=== PATIENT | male | born 1975 | race Caucasian/White ===

== ENCOUNTER 2020-01-11 18:55 | Emergency (ER) | payer OTHER, SELFPAY ==
[2020-01-11 18:59] VITALS: BP 144/90; PULSE 74; RESP 16; TEMP 36.5; O2SAT 97
--- NOTE | 2020-01-11 19:09 | ED.DENTAL ---
HPI - Dental/Oral General Chief complaint: Dental/Oral Stated complaint: tooth pain Time Seen by Provider: 01/11/20 19:05 Source: patient Mode of arrival: ambulatory Limitations: no limitations History of Present Illness HPI Narrative: Neo Covington is a 44 yo male with a PMH of alcoholism, anxiety, depression, comes to express care for dental pain , top, tooth #5, it is broken and pain and began to swell. Pain is 8 out of 10, Patient has a history of alcoholism is being treated with naltrexone; he is requesting an antibiotic and some nonnarcotic pain medication. He currently does not have health insurance but is returning to work and so has an appointment with either dental school or will try to get into a dentist Related Data Home Medications Medication Instructions Recorded Confirmed trazodone 100 mg PO HS 01/02/19 01/11/20 buspirone 15 mg PO BID 01/11/20 01/11/20 naltrexone 50 mg PO DAILY 01/11/20 01/11/20 Allergies Allergy/AdvReac Type Severity Reaction Status Date / Time No Known Allergies Allergy Verified 01/11/20 19:10 Review of Systems Review of Systems: Narrative: CONSTITUTIONAL: Denies fever, chills, sweats. EYES: Denies visual changes, redness, discharge. ENT: Denies rhinorrhea, congestion, sore throat, otalgia. Tooth #5 pain and swelling, fractured tooth CARDIOVASCULAR: Denies chest pain, palpitations, edema. RESPIRATORY: Denies dyspnea, wheezing, cough GASTROINTESTINAL: Denies abdominal pain, nausea, vomiting, diarrhea. GENITOURINARY: Denies dysuria, hematuria, abnormal discharge SKIN: Denies rash or itching. NEUROLOGIC: Denies numbness, or focal weakness. PSYCHIATRIC: Denies anxiety or depression. [facility]LY [facility] Past Medical History Medical History Alcohol abuse Family History Family History Other Depression Diabetes mellitus Social History Social History (Updated 01/11/20 @ 19:19 by Mounika Arnett CNP) Smoking packs per day: 0.5 Smoking cigarettes per day: 10.0 Smoking status: Current every day smoker Tobacco type: cigarettes Alcohol intake: former Comments At time of signature, I agree with nursing past medical, surgical, social and family history. There is no relevant family history pertinent to the presenting complaint. See note course about blood pressure Exam Narrative: Exam Narrative: GENERAL: This is a well-nourished, well-developed patient, in moderate distress. HEAD: normocephalic, atraumatic. EYES: Sclera clear/white. Vision is grossly intact. EARS: External ears normal, Hearing grossly intact. NOSE: External nose normal without nasal discharge, nares without redness, no rhinorrhea. THROAT: Mucous membranes moist, upper R incisor tooth pain - tooth fractured and broken off- poor dentition NECK: Neck supple, non-tender CARDIOVASCULAR: Regular rate and rhythm without murmurs, gallops, or rubs. RESPIRATORY: Clear to auscultation. Breath sounds equal bilaterally. No wheezes, rales, or rhonchi. GASTROINTESTINAL: Abdomen soft, non-tender, SKIN: warm, intact with no suspicious lesions or rash, good texture and turgor. NEURO: awake, alert, and oriented to person, place and time. There were no obvious focal neurologic abnormalities. Steady gait EXTREMITIES: Normal range of motion. BACK: Nontender without deformity Course Course Emergency Course: Patient came to our clinic with tooth pain and fractured front incisor on right Started on Toradol and penicillin given list of dentists and also medical doctor so that patient can follow-up for elevated blood pressure. Patient given directions to go by [facility] a couple times in the next week and check his blood pressure to see if it has remained elevated Vital Signs Vital signs: Vital Signs Temperature 97.7 F 01/11/20 18:59 Pulse Rate 74 01/11/20 18:59 Respiratory Rate 16 01/11/20 18:59 Blood Pressure 144/90 H 01/11/20 18:59 Pulse Oximetry 97
[2020-01-11 19:12] VITALS: BP 144/90; PULSE 74; RESP 16; TEMP 36.5; O2SAT 97
== END 2020-01-11 19:32 | disposition home or self-care (01) ==
PROVIDERS: Emergency Provider Nurse Practitioner
DX: K04.7 Periapical abscess without sinus (principal); F17.200 Nicotine dependence, unspecified, uncomplicated; F41.9 Anxiety disorder, unspecified; F32.9 Major depressive disorder, single episode, unspecified
CPT/HCPCS: 99213; G0463

== ENCOUNTER 2021-02-11 11:51 | Emergency (ER) | payer OTHER, SELFPAY ==
[2021-02-11 12:05] VITALS: BP 124/74; PULSE 84; RESP 16; TEMP 36.5; O2SAT 98
--- NOTE | 2021-02-11 12:44 | ED.URI ---
HPI - URI/Sore Throat General Chief Complaint: Upper Respiratory Infection Stated Complaint: Sore Throat Time Seen by Provider: 02/11/21 12:36 Source: patient and RN notes reviewed Mode of arrival: ambulatory Limitations: no limitations History of Present Illness HPI Narrative: Patient presents today complaint of 3-day history of sore throat with left ear pain that started this morning. Denies any additional symptoms to include fever, cough, congestion or rhinorrhea. Currently rates his pain 6/10 and has been taking ibuprofen and NyQuil with mild relief. He has been vaccinated against COVID-19. MD elicited complaint: sore throat Related Data Home Medications Medication Instructions Recorded Confirmed trazodone 100 mg PO HS 01/02/19 02/11/21 buspirone 15 mg PO BID 01/11/20 02/11/21 Allergies Allergy/AdvReac Type Severity Reaction Status Date / Time No Known Allergies Allergy Verified 01/11/20 19:10 Review of Systems Review of Systems: CONSTITUTIONAL: Denies body aches, fever, chills, or sweats. EYES: Denies visual changes, redness, or discharge. ENT: Denies rhinorrhea, congestion. + Sore throat, left ear pain CARDIOVASCULAR: Denies chest pain, palpitations, or edema. RESPIRATORY: Denies cough or dyspnea. GASTROINTESTINAL: Denies abdominal pain, nausea, vomiting, or diarrhea. GENITOURINARY: Denies dysuria or hematuria. SKIN: Denies rash, itching, or wounds. MUSCULOSKELETAL: Denies back pain, joint pain, or myalgia. NEUROLOGIC: Denies headache, numbness, tingling, or weakness. PSYCH: Denies depression or anxiety. FORMERLY [facility] Past Medical History Medical History Alcohol abuse Family History Family History Other Depression Diabetes mellitus Social History Social History Smoking packs per day: 0.5 Smoking cigarettes per day: 10.0 Smoking status: Current every day smoker Tobacco type: cigarettes Alcohol intake: former Comments At time of signature, I have reviewed and agree with nursing past medical, surgical, social and family history unless otherwise noted. Please see nursing chart for further information. There is no relevant family history pertinent to the presenting complaint Exam Narrative: GENERAL: Mildly ill-appearing, well-nourished, and in no acute distress. HEAD: Normocephalic, atraumatic. EYES: EOMI. No redness or drainage. Conjunctivae normal. ENT: Mucous membranes pink and moist. Nares clear. No rhinorrhea. TMs normal bilaterally. Throat moderately edematous and erythematous with white exudate bilaterally. Tonsils 3+. Uvula midline. NECK: Normal AROM. Supple. Bilateral anterior cervical chain lymphadenopathy. CHEST: No respiratory distress. Clear to auscultation. HEART: Regular rate and rhythm. No murmur appreciated. Normal peripheral pulses. EXTREMITIES: Normal range of motion. No edema. SKIN: Warm, dry, no rash. Capillary refill normal. Normal skin turgor. NEURO: No focal deficits. Alert and oriented x3. Gait steady. PSYCH: Normal affect. No signs of depression or anxiety. Course Vital Signs Vital signs: Vital Signs Temperature 97.7 F 02/11/21 12:05 Pulse Rate 84 02/11/21 12:05 Respiratory Rate 16 02/11/21 12:05 Blood Pressure 124/74 02/11/21 12:05 Pulse Oximetry 98 02/11/21 12:05 Temperature 97.7 F 02/11/21 12:05 Pulse Rate 84 02/11/21 12:05 Respiratory Rate 16 02/11/21 12:05 Blood Pressure 124/74 02/11/21 12:05 Pulse Oximetry 98 02/11/21 12:05 Reviewed. Pt has been instructed to follow up with his PCP regarding his elevated blood pressure today. MDM - URI/Sore Throat Differential Diagnosis Differential diagnosis: Likely upper respiratory infection, otitis media, pharyngitis and other (Strep throat) Lab Data Attestation: I reviewed the patient's lab results. Labs: Strep Screen P
== END 2021-02-11 12:51 | disposition home or self-care (01) ==
PROVIDERS: Emergency Provider Nurse Practitioner
DX: J02.9 Acute pharyngitis, unspecified (principal); F17.210 Nicotine dependence, cigarettes, uncomplicated
CPT/HCPCS: 87081; 87880; 99213; G0463

== ENCOUNTER 2022-02-01 15:05 | Emergency (ER) | payer OTHER, SELFPAY ==
[2022-02-01 15:11] VITALS: BP 122/77; PULSE 84; RESP 18; TEMP 36.7; O2SAT 97
--- NOTE | 2022-02-01 16:27 | ED.DENTAL ---
HPI - Dental/Oral General Chief complaint: Dental/Oral Stated complaint: Toothache Time Seen by Provider: 02/01/22 16:20 Source: patient, RN notes reviewed and old records reviewed Mode of arrival: ambulatory Limitations: no limitations History of Present Illness HPI Narrative: 46-year-old male who presents to [facility] with complaints of pain, swelling to gum surrounding left upper tooth for the past 3 days. patient reports that his tooth broke off about 3 weeks ago and he is trying to get in to either dental clinic in [place] or the [facility] dental clinic in [facility] since they will accept the medical card. Patient reports that he has been taking Tylenol and Ibuprofen for his pain. Patient has multiple missing teeth and dental caries MD Complaint: tooth pain Location: Tooth # (11) Onset (ago): day(s) (3) Severity scale (1-10): 8 Treatment prior to arrival: oral analgesic Related Data Allergies Allergy/AdvReac Type Severity Reaction Status Date / Time No Known Allergies Allergy Verified 02/01/22 15:30 Review of Systems Review of Systems: CONSTITUTIONAL: Denies fever, chills, or sweats. ENT: Denies rhinorrhea, congestion, sore throat, or otalgia. Reports dental pain to #11 tooth with swelling and redness to gum around tooth CARDIOVASCULAR: Denies chest pain, palpitations, or edema. RESPIRATORY: Denies cough or dyspnea. SKIN: Denies rash or itching. MUSCULOSKELETAL: Denies myalgia. NEUROLOGIC: Denies headache All systems reviewed & are unremarkable except as noted in HPI and below PMFSH Past Medical History Medical History (Updated 02/10/22 @ 21:56 by Mariel Cannon NP) Alcohol abuse Anxiety Asthma Surgical History Surgical History (Updated 02/10/22 @ 21:55 by Mariel Cannon NP) H/O inguinal hernia repair History of intestinal surgery small bowel 8 inches removed Family History Family History Other Depression Diabetes mellitus Social History Social History (Updated 02/10/22 @ 21:54 by Mariel Cannon NP) Smoking packs per day: 0.5 Smoking cigarettes per day: 10.0 Smoking status: Former smoker Tobacco type: cigarettes Alcohol intake: former Comments At time of signature, agree with nursing past medical, surgical, social and family history. There is no relevant family history pertinent to the presenting complaint Exam Narrative: GENERAL: Well-appearing, well-nourished, and in no acute distress. HEAD: Normocephalic, atraumatic. EYES: PERRLA and EOMI. ENT: Nares clear, no rhinorrhea or epistaxis. Mucous membranes moist. Missing teeth, broken teeth, caries,red swollen gum around #11 tooth which is broken, no Jayson angina noted or facial swelling NECK: Supple.no lymphadenopathy CHEST: Clear to auscultation. No respiratory distress.SAO2 97% on room air HEART: Regular rate and rhythm. No murmur heard. Normal peripheral pulses. SKIN: Warm, dry, no rash. NEURO: No focal deficits. Alert and oriented x3. Course Course Emergency Course: Patient is aware of diagnosis, understands and agrees to treatment plan. Anticipatory guidance given. Patient agrees to follow-up as directed and is aware of reasons to seek care at the emergency department. Portions of this record may have been created with voice recognition software Level of Care: Express Care Visit Vital Signs Vital signs: Vital Signs Temperature 36.7 C 02/01/22 15:11 Pulse Rate 84 02/01/22 15:11 Respiratory Rate 18 02/01/22 15:11 Blood Pressure 122/77 02/01/22 15:11 Pulse Oximetry 97 02/01/22 15:11 Oxygen Delivery Room Air 02/01/22 15:11 Temperature 36.7 C 02/01/22 15:11 Pulse Rate 84 02/01/22 15:11 Respiratory Rate 18 02/01/22 15:11 Blood Pressure 122/77 02/01/22 15:11 Pulse Oximetry 97 02/01/22 15:11 Oxygen Delivery Room Air 02/01/22 15:11 Reviewed MDM - Dental/Oral MDM Narrative Medical decision making narr
== END 2022-02-01 16:42 | disposition home or self-care (01) ==
PROVIDERS: Emergency Provider Registered Nurse
DX: K04.7 Periapical abscess without sinus (principal); K08.89 Other specified disorders of teeth and supporting structures; F17.210 Nicotine dependence, cigarettes, uncomplicated
CPT/HCPCS: 99213; G0463

== ENCOUNTER 2022-06-15 17:55 | Emergency (ER) | payer OTHER, SELFPAY ==
[2022-06-15 18:01] VITALS: BP 154/97; PULSE 69; RESP 18; TEMP 36.6; O2SAT 97
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
== END 2022-06-15 18:36 | disposition home or self-care (01) ==
PROVIDERS: Emergency Provider Nurse Practitioner Family
DX: K04.7 Periapical abscess without sinus (principal); Z87.891 Personal history of nicotine dependence; J45.909 Unspecified asthma, uncomplicated
CPT/HCPCS: 99213; G0463

== ENCOUNTER 2023-01-31 12:32 | Emergency (ER) | payer OTHER, SELFPAY ==
[2023-01-31 12:38] VITALS: BP 144/106; PULSE 78; RESP 20; TEMP 36.5; O2SAT 96
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
== END 2023-01-31 13:33 | disposition home or self-care (01) ==
PROVIDERS: Emergency Provider Registered Nurse
DX: J06.9 Acute upper respiratory infection, unspecified (principal); Z20.822 Contact with and (suspected) exposure to COVID-19; Z87.891 Personal history of nicotine dependence; J45.909 Unspecified asthma, uncomplicated
CPT/HCPCS: 87081; 87426; 87804; 87880; 99213; C9803; G0463